=== PATIENT | female | born 1950 | race African-American/Black ===

== ENCOUNTER 2017-07-18 15:16 | Emergency (ER) | payer OTHER ==
[~2017-07-18] VITALS: Ht 160 cm; Wt 97.0 kg
[~2017-07-18 15:16] MED LIST: AMLO5TAB96 PO; GLYB1TAB51 PO; METF-324 PO; SIMV20 PO
[2017-07-18 15:21] VITALS: BP 197/106; PULSE 107; RESP 20; TEMP 99.7; O2SAT 97
--- NOTE | 2017-07-18 15:55 | PD ---
Physical Exam Date Seen by Provider: Jul 18, 2017 Time Seen by Provider: 15:51 Narrative 67 yr old female here with c/o feeling shaky, faint and had some pain running through her body. Reports hx of diabetes and HTN, but doesn't take meds for it. Has pain rated as 8/10. In triage blood sugars is 291. Her PCP is Dr. Thurman. Data Data Last Documented VS Vital Signs Date Time Temp Pulse Resp B/P (MAP) Pulse Ox O2 Delivery O2 Flow Rate FiO2 07/18/17 15:21 99.7 107 20 197/106 (136) 97 MDM Medical Record Reviewed: Yes Supervised Visit with JITENDRA: No Condition: Stable Marce Sahu Jul 18, 2017 15:55
== END 2017-07-18 18:48 | disposition left against medical advice (07) ==
LOC: NED 15:16
DX: M79.1 Myalgia (principal); R25.1 Tremor, unspecified; E11.9 Type 2 diabetes mellitus without complications; I10 Essential (primary) hypertension
CPT/HCPCS: 99281